=== PATIENT | female | born 1930 | race Caucasian/White ===

== ENCOUNTER 2017-02-19 19:03 | Inpatient (IN) | payer OTHER, BC ==
[2017-02-19] MEDS ORDERED: methylPREDNISolone SOD SUCC 125 MG/2 ML VIAL IVP ONE (19:15)
[2017-02-19] MEDS ORDERED: MAGNESIUM SULF 2 GM/WATER 50 ML IV ONE (19:15)
--- NOTE | 2017-02-19 19:18 | CPEKG ---
Heart Rate: 114 RR Interval: 526 P-R Interval: 121 QRSD Interval: 88 QT Interval: 312 QTC Interval: 430 P Mineral: 0 QRS [place]eral: 31 EKG Severity - ABNORMAL ECG - EKG Impression: SINUS TACHYCARDIA EKG Impression: LVH WITH SECONDARY REPOLARIZATION ABNORMALITY Electronically Signed By: Kelle Bravo 19-Feb-2017 22:07:42
[2017-02-19 19:29] LABS: % IMMATURE GRANULYOCYTES 1.2 % (0.0-1.1); ABSOLUTE IMMATURE GRANULOCYTES 0.15 10^3/uL (0.00-0.10); ADD DIFF? NO; ADD MORPH? NO; ADD SCAN? NO; ATYPICAL LYMPHOCYTE FLAG 10 (0-99); FRAGMENT RBC FLAG 0 (0-99); HEMATOCRIT 43.3 % (38.0-47.0); LEFT SHIFT FLG 0 (0-99); LIPEMIA HEMOLYSIS FLAG 80 (0-99); MEAN CELL HEMOGLOBIN 30.5 pg (27.9-34.1); MEAN CELL HEMOGLOBIN CONCENTR. 32.3 g/dL (32.4-36.7); MEAN CELL VOLUME 94.3 fL (81.5-99.8); MEAN PLATELET VOLUME 11.9 fL (8.7-11.7); PLATELET CLUMPS FLAG 20 (0-99); PLATELET COUNT 195 10^3/uL (150-400); RED BLOOD CELL COUNT 4.59 10^6/uL (4.18-5.33); RED CELL DISTRIBUTION WIDTH 13.5 % (11.5-15.2)
[2017-02-19 19:34] LABS: INR 1.15 (0.83-1.16); PROTIME(PATIENT) 14.6 SEC (12.0-15.0)
[2017-02-19 19:36] LABS: ANION GAP 15 mEq/L (8-16); CALCIUM 9.9 mg/dL (8.5-10.4); CARBON DIOXIDE 22 mEq/l (22-31); CHLORIDE 100 mEq/L (97-110); CREATININE 1.3 mg/dL (0.6-1.0); GLOMERULAR FILTRATION RATE 39; GLUCOSE 219 mg/dL (70-100); POTASSIUM 4.3 mEq/L (3.5-5.2); SODIUM 137 mEq/L (134-144)
[2017-02-19 19:40] LABS: APTT 25.2 SEC (23.0-38.0)
[2017-02-19 19:48] LABS: TROPONIN I 0.025 ng/mL (0.000-0.034)
[2017-02-19] MEDS ORDERED: NS 250 ML IV ONE (20:00)
[2017-02-19] MEDS ORDERED: IOPAMIDOL (ISOVUE 370) 100 ML BTL IV ONE (20:05)
[2017-02-19] MEDS ORDERED: AZITHROMYCIN IV 500 MG in D5W 250 ML IV ONE (20:06)
--- NOTE | 2017-02-19 20:06 | EDPHY ---
H & P Time Seen by Provider: 02/19/17 19:13 HPI/ROS: HPI Shortness of breath, syncope. 86-year-old female by ambulance with her daughter. [facility]. She has a history of pulmonary hypertension, sarcoidosis and pulmonary fibrosis. She is on oxygen at night. Over the last 2 weeks, her daughter reports that she has required more oxygen. She had a syncopal event at her assisted prior to arrival. Her daughter reports that she has become progressively more short of breath as well over the last several days. ROS: Constitutional: No fever, no chills. As above. Eyes: No discharge. No changes in vision. ENT: No sore throat. No nasal congestion or rhinorrhea. Respiratory: No cough. As above. Cardiac: No chest pain, no palpitations. Gastrointestinal: No abdominal pain, no vomiting, no diarrhea. Genitourinary: No hematuria. No dysuria or increased frequency with urination. Musculoskeletal: No back pain. No neck pain. No myalgias or arthralgias. Skin: No rashes. Neurological: No headache. No focal weakness or altered sensation. Past medical history: As above and includes hypothyroidism, dementia. Social history: Nonsmoker. Here with her daughter. No alcohol. Physical Exam: General Appearance: Alert, on facemask oxygen. This patient appears generally well-hydrated and well-nourished. Eyes: Pupils equal and round no pallor or injection. No lid edema, erythema or injection. ENT, Mouth: Mucous membranes are dry. The pharyngeal tissues are unremarkable. No edema or swelling. No asymmetry suggestive of abscess. No erythema or exudates. Respiratory: There are no retractions, decreased lung sounds at the left base. Lung sounds clear to auscultation bilaterally anteriorly. Cardiovascular: Regular rate and rhythm. Mild tachycardia. No murmur. Gastrointestinal: Abdomen is soft and nontender, no masses, bowel sounds normal. No focal tenderness at McBurney's point. No Foster sign. Neurological: Motor sensory function is grossly intact. Cranial nerves are grossly normal. Skin: Warm and dry, no rashes. Musculoskeletal: Neck is supple and nontender. Extremities are symmetrical. All joints range without pain or impingement. Psychiatric: No agitation. No depression. Database: EKG: EKG time is 7:16 p.m.; EKG shows a narrow complex normal sinus tachycardia with a ventricular rate of 114. Left ventricular hypertrophy noted. The WI, QRS, QT intervals are within normal limits. There are no ST-T wave changes indicative of ischemic or injury pattern. No evidence of right heart strain. Interpreted by me. Imaging: Chief chest x-ray AP portable: Probable left basilar infiltrate. Increased interstitial markings, no pneumothorax. Interpreted by me. CT angiogram of the chest: Significant for bilateral pulmonary emboli with right ventricular hypertrophy high volume. Results discussed with staff radiologist Dr. Tobi Walker. Procedures: Emergency department course: IV placed. Patient was placed on non-rebreather face mask oxygen at 15 L. Vital signs were reviewed. EKG and chest x-ray obtained. Patient given 125 mg of IV Solu-Medrol. Blood cultures obtained. 8:00 p.m., discussed case with on-call hospitalist Dr. German Cervantes. We reviewed the patient's chest x-ray together. Patient started on IV azithromycin and IV Rocephin in the emergency department for probable pneumonia. Patient's D-dimer markedly elevated. Will obtain CT angiogram. Dr. Cervantes accepts the patient for admission to telemetry. 8:40 p.m., discussed results of CT angiogram of chest with admitting hospitalist Dr. German Cervnates. Patient started on IV heparin per protocol. Patient admitted to telemetry in stable condition. Differential Diagnosis: The differential diagnosis on this patient includes but is not limited to pneumonia, congestive heart failure, pulmonary embolism, acute coronary syndrome , pulmonary hypertension, pulmonary fibrosis. This represents a partial list of diagnoses considered. These considerations are based on history, physical exam, past history, reassessment and diagnostic testing. Smoking Status: Never smoked Constitutional: Initial Vital Signs Temperature (C) 36 C 02/19/17 19:10 Heart Rate 116 H 02/19/17 19:10 Respiratory Rate 32 H 02/19/17 19:10 Blood Pressure 134/90 H 02/19/17 19:10 O2 Sat (%) 92 02/19/17 19:10 O2 Delivery Mode Non-Rebreather Mask O2 (L/minute) 15 Allergies/Adverse Reactions: Penicillins Allergy (Verified 02/19/17 19:08) Home Medications: Medication Instructions Recorded Calcium Carbonate/Vitamin D2 1 tab PO BID 02/19/17 [Oyster Shell Calcium-Vit D Tab] Cholecalciferol Vit D3 [Vitamin D3 1,000 units PO DAILY 02/19/17 (*)] Folic Acid [Folic Acid 1 MG (*)] 1 mg PO DAILY 02/19/17 Levothyroxine [Synthroid 50 mcg 50 mcg PO DAILY06 02/19/17 (*)] Pyridoxine HCl [Vitamin B-6 25 mg 25 mg PO DAILY 02/19/17 (*)] Travoprost Z 0.004% [Travatan Z 1 drops EACHEYE DAILY 02/19/17 0.004% (*)] Medical Decision Making - Diagnostics Imaging Results: Imaging Impressions Chest/Thorax CTA 02/19/17 19:58 Impression: 1. Severe bilateral pulmonary emboli. 2. Pulmonary hypertension, with enlargement of right ventricle. 3. Bronchiectasis and bilateral pulmonary scarring. 4. Large hiatal hernia. I discussed results with Kelle Bravo M.D., at 2031 hours. - Data Points Laboratory Results: Laboratory Results 02/19/17 19:15 02/19/17 19:15 Microbiology Results: MICROBIOLOGY 02/19/17 19:48 Nasal, Sinus - Swab Respiratory Panel (PCR) - Final No Organism Detected Medications Given: Calcium/Vitamin D (Calcium Carb W/Vit D) 1 mg PO BID [facility] Stop: 08/19/17 08:59 Last Admin: 02/20/17 08:07 Dose: 1 mg Folic Acid (Folic Acid) 1 mg PO DAILY [facility] Stop: 08/19/17 08:59 Last Admin: 02/20/17 08:07 Dose: 1 mg Azithromycin 500 mg/ Dextrose 255 mls @ 255 mls/hr IV DAILY@1000 [facility] PRN Reason: Protocol Stop: 03/22/17 09:59 Last Admin: 02/20/17 10:23 Dose: 255 mls Ceftriaxone Sodium/Dextrose (Rocephin 1 Gm (Premix)) 50 mls @ 100 mls/hr IV DAILY [facility] PRN Reason: Protocol Stop: 03/22/17 08:59 Last Admin: 02/20/17 08:06 Dose: 50 mls Sodium Chloride (Ns) 1,000 mls @ 75 mls/hr IV CONT [facility] Stop: 08/18/17 20:14 Last Admin: 02/19/17 22:49 Dose: 1,000 mls Levothyroxine Sodium (Synthroid) 50 mcg PO DAILY06 [facility] Stop: 08/19/17 05:59 Last Admin: 02/20/17 05:27 Dose: 50 mcg Pyridoxine HCl (Vitamin B-6) 25 mg PO DAILY [facility] Stop: 08/19/17 08:59 Last Admin: 02/20/17 08:07 Dose: 25 mg Discontinued Medications Heparin Sodium (Porcine) (Heparin Injection) 0 unit IVP EDNOW ONE PRN Reason: Protocol Stop: 02/19/17 20:39 Last Admin: 02/19/17 21:01 Dose: 4,600 units Heparin Sodium (Porcine) (Heparin Injection) 0 unit IVP ONCE ONE PRN Reason: Protocol Stop: 02/19/17 20:39 Last Admin: 02/19/17 22:39 Dose: Not Given Magnesium Sulfate (Magnesium Sulf 2 Gm (Premix)) 50 mls @ 50 mls/hr IV EDNOW ONE Stop: 02/19/17 20:14 Last Admin: 02/19/17 19:29 Dose: 50 mls Sodium Chloride (Ns) 250 mls @ 1,000 mls/hr IV EDNOW ONE PRN Reason: Protocol Stop: 02/19/17 20:14 Last Admin: 02/19/17 20:07 Dose: 250 mls Azithromycin 500 mg/ Dextrose 255 mls @ 255 mls/hr IV EDNOW ONE PRN Reason: Protocol Stop: 02/19/17 21:05 Last Admin: 02/19/17 20:33 Dose: 255 mls Ceftriaxone Sodium/Dextrose (Rocephin 1 Gm (Premix)) 50 mls @ 100 mls/hr IV EDNOW ONE PRN Reason: Protocol Stop: 02/19/17 20:35 Last Admin: 02/19/17 23:37 Dose: 50 mls Heparin Sodium (Porcine) (Heparin 50 Units/Ml (Premix)) 500 mls @ 0 mls/hr IV EDNOW ONE; Per Protocol PRN Reason: Protocol Stop: 02/19/17 20:39 Last Admin: 02/19/17 21:02 Dose: 500 mls Methylprednisolone Sodium Succinate (Solu-Medrol) 125 mg IVP EDNOW ONE Stop: 02/19/17 19:16 Last Admin: 02/19/17 19:27 Dose: 125 mg Departure - Departure Disposition: [facility] Acute Clinical Impression: Hypoxia, Syncope, Pneumonia, Pulmonary embolism
[2017-02-19] MEDS ORDERED: oxyCODONE IR 5 MG TAB PO PRN (20:10)
[2017-02-19] MEDS ORDERED: ACETAMINOPHEN 325 MG TAB PO PRN (20:10)
[2017-02-19] MEDS ORDERED: ONDANSETRON DISINTEGRATING 4 MG TAB PO PRN (20:10)
[2017-02-19] MEDS ORDERED: HEPARIN 10,000 UNIT/10 ML MDV IVP ONE ×2 (20:38)
[2017-02-19] MEDS ORDERED: HEPARIN 10,000 UNIT/10 ML MDV IVP PRN (20:38)
[2017-02-19] MEDS ORDERED: HEPARIN/DEXTROSE 500 ML IV ONE (20:38)
--- NOTE | 2017-02-19 20:40 | HOSPPROG ---
Hospitalist Progress Note Assessment/Plan: CT reviewed - bilat PE - discussed with daughter - will start heparin; would not escalate therapies Objective: Vital Signs Temp Pulse Resp BP Pulse Ox 36.4 C 116 H 24 H 124/84 H 97 02/19/17 20:00 02/19/17 20:00 02/19/17 20:00 02/19/17 20:00 02/19/17 20:00 PT 14.6 SEC (12.0-15.0) 02/19/17 19:15 INR 1.15 (0.83-1.16) 02/19/17 19:15 ICD10 Worksheet Patient Problems: Problems Problem Status Onset Hypoxia Acute Syncope Acute Pneumonia Acute
--- NOTE | 2017-02-19 20:44 | GHP ---
[f rep st] HISTORY AND PHYSICAL DATE OF ADMISSION: 02/19/2017 CHIEF COMPLAINT: Collapse. HISTORY OF PRESENT ILLNESS: This is an 86-year-old female, who lives at [facility] , was brought in today after she collapsed. She is accompanied by her daughter who provides most of the history. She apparently has not been feeling well for the last few weeks. She moved here somewh at recently, was initially needing nocturnal oxygen. This progressed to occasionally needing oxygen during the day. For the past few weeks, she has been more fatigued and felt more short of breath. T elizabet, she was seen to collapse in the [place]. They checked her sats at the time and they were in the 7 0s. She was also blue at the time. She does have a significant pulmonary history, which I will deta il below. Otherwise, when I ask her, she is not complaining of any chest pain or shortness of breath . She has no pleuritic pain either. PAST MEDICAL/SURGICAL HISTORY: 1. 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 2. Pulmonary hypertension. She is followed by a spa therapist in [place]. 3. Dementia. MEDICATIONS: Please see medication reconciliation. ALLERGIES: Penicillin. SOCIAL HISTORY: She lives at [place]. FAMILY HISTORY: Parents are . REVIEW OF SYSTEMS: 10-point review of systems is conducted and is negative except per HPI. PHYSICAL EXAMINATION: VITAL SIGNS: Blood pressure 124/84, heart rate 116, respiration rate 24, satt ing at 97% on 15 L nonrebreather. Temperature is 36.4. GENERAL: The patient is a pleasant, older, elderly female, who is wearing a facemask. She looks somewhat uncomfortable. HEENT: Shows her to b e in a simple facemask. CARDIOVASCULAR: Shows her to be tachycardic. There are no murmurs, rubs, o r gallops. PULMONARY: Shows her to have significant crackles on the left side. She is in some resp iratory distress. ABDOMEN: Soft, nontender, nondistended. SKIN: Showed no rash. : Showed no F oley. NEUROLOGIC: Shows her to be alert and oriented x3. She is moving all extremities. PSYCHIATR IC: Shows normal mood and affect. LABORATORY DATA: White count is 12.4. D-dimer is 19.8. INR is 1.1. Creatinine is 1.3. BUN is 35. BNP is 895. Glucose is 219. DATA: 1. Chest x-ray, which I personally viewed and interpreted, shows marked infiltrate in the left base. We have no olds to compare this to. 2. EKG, which I also personally viewed and interpreted, shows her to be tachycardic. She has a Q-wa ve in lead III. She has ST-depressions in leads V4 through V6. IMPRESSION AND PLAN: This is an 86-year-old female, who presents with acute respiratory failure. 1. Acute respiratory failure: There is certainly a chronic component. Differential includes pneumo travis, worsening pulmonary fibrosis, pulmonary embolus. She will be sent for a stat CT scan right now. We will treat her with antibiotics in the meantime covering community-acquired sources. I have sen t a coccidial mycoses antibody, a sputum culture, Legionella urine antigen. 2. Systemic inflammatory response syndrome: May be sepsis. Pneumonia would be the source. This al so could all be due to a pulmonary embolus. CT scan will help to further evaluate this. 3. History of pulmonary fibrosis, history of Valley fever, history of whooping cough: She sees a lmonologist. May be helpful to have a pulmonary consult while she is here. Again, CT scan will be i nformative. 4. Dementia: She will be at high risk for delirium. Her daughter is with her right now. We will t ry nonpharmacologic measures to keep her comfortable. 5. Code status is Do Not Resuscitate. /[id number]/MODL
[2017-02-19] MEDS ORDERED: HEPARIN/DEXTROSE 500 ML IV SCH (20:45)
[2017-02-19] MEDS: NS 1,000 ML IV SCH (22:49)
[2017-02-20 03:49] LABS: TROPONIN I 0.128 ng/mL (0.000-0.034)
[2017-02-20] MEDS: LEVOTHYROXINE 50 MCG TAB PO SCH (05:27)
[2017-02-20] MEDS: PYRIDOXINE HCL 25 MG TAB PO SCH (08:07)
[2017-02-20] MEDS: FOLIC ACID 1 MG TAB PO SCH (08:07)
[2017-02-20] MEDS: CALCIUM CARB W/VIT D 500 MG TAB PO SCH ×3 (08:07→21:40)
[2017-02-20] MEDS ORDERED: ENOXAPARIN 40 MG/0.4 ML SYR SC SCH (09:00)
[2017-02-20] MEDS: AZITHROMYCIN IV 500 MG in D5W 250 ML IV SCH (10:23)
--- NOTE | 2017-02-20 10:41 | HOSPPROG ---
Hospitalist Progress Note Assessment/Plan: 86-year-old admitted with 3 weeks of failure to thrive, increasing weakness and presenting with a syncopal event is found to have large volume bilateral pulmonary emboli. It is unclear the timing of this if they correspond to her decline 3 weeks ago or if this was an acute finding. She does have fairly advanced dementia and he is difficult to get a history from her. # large volume pulmonary emboli with weakness noted in her right leg over the past few weeks. Possibly she had some small emboli starting a few weeks ago with a larger volume load yesterday on admission. * Continue IV heparin * Check lower extremity Dopplers * Maintain bed rest today * Patient high risk, daughter is aware she is a do not resuscitate. # advanced dementia, patient has been declining for quite some time. I suspect she will also decline further after this hospitalization. # pulmonary fibrosis due to Valley fevers child # hypothyroidism, on replacement. Will recheck if not done recently # history of pulmonary hypertension followed by sculpture instructor in [place]. Because of this history will not repeat echo at this time since she is hemodynamically stable Subjective: Patient new to me and chart reviewed. Patient is comfortable sleeping in bed. She denies any chest pain like pain. Objective: Vital Signs Temp Pulse Resp BP Pulse Ox 34.8 C L 86 16 118/87 H 95 02/20/17 07:22 02/20/17 07:22 02/20/17 07:22 02/20/17 07:22 02/20/17 07:22 02/19/17 02/20/17 02/21/17 05:59 05:59 05:59 Intake Total 300 Balance 300 PT 14.6 SEC (12.0-15.0) 02/19/17 19:15 INR 1.15 (0.83-1.16) 02/19/17 19:15 - Physical Exam Constitutional: no apparent distress, chronically ill appearing Eyes: anicteric sclera, EOMI Ears, Nose, Mouth, Throat: moist mucous membranes Cardiovascular: regular rate and rhythym, No edema Respiratory: no respiratory distress, no rales or rhonchi, clear to auscultation Gastrointestinal: normoactive bowel sounds, soft, non-tender abdomen Genitourinary: no bladder fullness Skin: warm, normal color Musculoskeletal: abnormal gait, generalized weakness Neurologic: No AAOx3 Psychiatric: poor judgement, poor memory ICD10 Worksheet Patient Problems: Problems Problem Status Onset Hypoxia Acute Syncope Acute Pneumonia Acute Pulmonary embolism Acute
[2017-02-20 10:52] LABS: % IMMATURE GRANULYOCYTES 0.7 % (0.0-1.1); ABSOLUTE IMMATURE GRANULOCYTES 0.08 10^3/uL (0.00-0.10); ADD DIFF? NO; ADD MORPH? NO; ADD SCAN? NO; ATYPICAL LYMPHOCYTE FLAG 0 (0-99); FRAGMENT RBC FLAG 0 (0-99); HEMATOCRIT 44.8 % (38.0-47.0); HEMOGLOBIN 14.4 g/dL (12.6-16.3); LEFT SHIFT FLG 0 (0-99); LIPEMIA HEMOLYSIS FLAG 80 (0-99); MEAN CELL HEMOGLOBIN 30.5 pg (27.9-34.1); MEAN CELL HEMOGLOBIN CONCENTR. 32.1 g/dL (32.4-36.7); MEAN CELL VOLUME 94.9 fL (81.5-99.8); MEAN PLATELET VOLUME 11.8 fL (8.7-11.7); PLATELET CLUMPS FLAG 0 (0-99); PLATELET COUNT 175 10^3/uL (150-400); RED BLOOD CELL COUNT 4.72 10^6/uL (4.18-5.33); RED CELL DISTRIBUTION WIDTH 13.2 % (11.5-15.2)
[2017-02-20 11:19] LABS: ALANINE AMINOTRANSFERASE 39 IU/L (9-52); ALBUMIN 3.9 g/dL (3.5-5.0); ALKALINE PHOSPHATASE 104 IU/L (38-126); ANION GAP 22 mEq/L (8-16); ASPARTATE AMINOTRANSFERASE 49 IU/L (14-46); BILIRUBIN,TOTAL 0.6 mg/dL (0.1-1.4); CALCIUM 8.6 mg/dL (8.5-10.4); CARBON DIOXIDE 16 mEq/l (22-31); CHLORIDE 105 mEq/L (97-110); GLOMERULAR FILTRATION RATE 52; GLUCOSE 197 mg/dL (70-100); POTASSIUM 4.2 mEq/L (3.5-5.2); SODIUM 143 mEq/L (134-144); TOTAL PROTEIN 7.8 g/dL (6.3-8.2)
[2017-02-20] MEDS: TRAVOPROST Z 0.004% 2.5 ML OPHT.BTL EACHEYE SCH (16:29)
[2017-02-21] MEDS: NS 1,000 ML IV SCH (04:42)
[2017-02-21 04:50] LABS: HEMATOCRIT 35.3 % (38.0-47.0); HEMOGLOBIN 11.6 g/dL (12.6-16.3); MEAN CELL HEMOGLOBIN 30.5 pg (27.9-34.1); MEAN CELL HEMOGLOBIN CONCENTR. 32.9 g/dL (32.4-36.7); MEAN CELL VOLUME 92.9 fL (81.5-99.8); RED BLOOD CELL COUNT 3.8 10^6/uL (4.18-5.33); RED CELL DISTRIBUTION WIDTH 13.3 % (11.5-15.2)
[2017-02-21 05:10] LABS: ANION GAP 9 mEq/L (8-16); CALCIUM 8.4 mg/dL (8.5-10.4); CARBON DIOXIDE 20 mEq/l (22-31); CHLORIDE 107 mEq/L (97-110); CREATININE 0.9 mg/dL (0.6-1.0); GLOMERULAR FILTRATION RATE 59; GLUCOSE 115 mg/dL (70-100); POTASSIUM 4.2 mEq/L (3.5-5.2); SODIUM 136 mEq/L (134-144)
[2017-02-21] MEDS: LEVOTHYROXINE 50 MCG TAB PO SCH (06:27)
[2017-02-21] MEDS: AZITHROMYCIN IV 500 MG in D5W 250 ML IV SCH (10:02)
[2017-02-21] MEDS ORDERED: OLANZapine 2.5 MG TAB PO PRN (10:16)
--- NOTE | 2017-02-21 10:18 | HOSPPROG ---
Hospitalist Progress Note Assessment/Plan: 86-year-old admitted with 3 weeks of failure to thrive, increasing weakness and presenting with a syncopal event is found to have large volume bilateral pulmonary emboli. It is unclear the timing of this if they correspond to her decline 3 weeks ago or if this was an acute finding. She does have fairly advanced dementia and he is difficult to get a history from her. # large volume pulmonary emboli with weakness noted in her right leg over the past few weeks. Possibly she had some small emboli starting a few weeks ago with a larger volume load yesterday on admission. * Changed to Lovenox * add warfarin * activity as tolerated * patient hemodynamically stable currently # advanced dementia, patient has been declining for quite some time. I suspect she will also decline further after this hospitalization. * overnight with poor sleep. We will add Zyprexa as needed for sleep. # pulmonary fibrosis due to Valley fevers child # hypothyroidism, on replacement. Will recheck if not done recently # history of pulmonary hypertension followed by tour agent in [place]. Because of this history will not repeat echo at this time since she is hemodynamically stable Objective: Vital Signs Temp Pulse Resp BP Pulse Ox 36.3 C 83 14 152/88 H 96 02/21/17 08:00 02/21/17 08:00 02/21/17 08:00 02/21/17 08:00 02/21/17 08:00 Laboratory Results 02/21/17 04:42 02/21/17 04:42 02/20/17 02/21/17 02/22/17 05:59 05:59 05:59 Intake Total 300 2566 Balance 300 2566 PT 14.6 SEC (12.0-15.0) 02/19/17 19:15 INR 1.15 (0.83-1.16) 02/19/17 19:15 ICD10 Worksheet Patient Problems: Problems Problem Status Onset Hypoxia Acute Syncope Acute Pneumonia Acute Pulmonary embolism Acute
[2017-02-21] MEDS: ENOXAPARIN 80 MG/0.8 ML SYR SC SCH ×2 (10:50→20:27)
[2017-02-21] MEDS: TRAVOPROST Z 0.004% 2.5 ML OPHT.BTL EACHEYE SCH (11:16)
[2017-02-21] MEDS: FOLIC ACID 1 MG TAB PO SCH (13:54)
[2017-02-21] MEDS: CALCIUM CARB W/VIT D 500 MG TAB PO SCH ×2 (13:55→20:27)
[2017-02-21] MEDS: PYRIDOXINE HCL 25 MG TAB PO SCH (13:55)
[2017-02-21] MEDS ORDERED: WARFARIN SODIUM 5 MG TAB PO ONE (16:00)
--- NOTE | 2017-02-21 17:08 | ASMTCMCOM ---
CM Note CM Note Notes: Spoke w/pt's daughter Karol [phone] re HC. Pt will need an RN for Lovenox injections and PT/OT are recommending skilled therapy. Karol rolando Mena, RN from [facility], will be here tomorrow at 2pm to assess pt for needs and her return to [facility], and whether they will be able to meet her skilled RN/PT needs. Pt has had HC through [facility] in past. Karol will f/u with CM tomorrow after she meets w/Trina to let us know whether pt will have HC through [facility] or [facility]. Date Signed: 02/21/2017 02:36 PM Electronically Signed By:Kelly Lopez
--- NOTE | 2017-02-21 17:08 | ASMTCMCOM ---
CM Note CM Note Notes: Chart reviewed, CM met w/ pt and daughter for dispo planning. PT is recommending home health. Pt resides in [facility] in [place]. Daughter is MDPOA does not think that home health would be beneficial at this time. Daughter reports that pt is too far advanced in her dementia to retain new information. Daughter feels that pt will be more agitated with home health. Director of [place] will be in tomorrow to visit with pt (Trina Rivers RN P#: [phone]). Pt will most likely discharge independent. CM available for changes. Date Signed: 02/20/2017 02:05 PM Electronically Signed By:Gaviota Carballo
[2017-02-22] MEDS: LEVOTHYROXINE 50 MCG TAB PO SCH (05:06)
[2017-02-22 05:20] LABS: HEMATOCRIT 41.1 % (38.0-47.0); MEAN CELL HEMOGLOBIN 29.8 pg (27.9-34.1); MEAN CELL HEMOGLOBIN CONCENTR. 31.6 g/dL (32.4-36.7); MEAN CELL VOLUME 94.3 fL (81.5-99.8); RED BLOOD CELL COUNT 4.36 10^6/uL (4.18-5.33); RED CELL DISTRIBUTION WIDTH 13.4 % (11.5-15.2)
[2017-02-22 05:31] LABS: INR 1.15 (0.83-1.16); PROTIME(PATIENT) 14.6 SEC (12.0-15.0)
[2017-02-22 05:54] LABS: ANION GAP 11 mEq/L (8-16); CALCIUM 9.5 mg/dL (8.5-10.4); CARBON DIOXIDE 23 mEq/l (22-31); CHLORIDE 107 mEq/L (97-110); GLOMERULAR FILTRATION RATE 52; GLUCOSE 82 mg/dL (70-100); POTASSIUM 4.5 mEq/L (3.5-5.2); SODIUM 141 mEq/L (134-144)
[2017-02-22] MEDS: FOLIC ACID 1 MG TAB PO SCH (09:13)
[2017-02-22] MEDS: ENOXAPARIN 80 MG/0.8 ML SYR SC SCH ×2 (09:13→21:23)
[2017-02-22] MEDS: CALCIUM CARB W/VIT D 500 MG TAB PO SCH ×2 (09:13→21:23)
[2017-02-22] MEDS: PYRIDOXINE HCL 25 MG TAB PO SCH (09:13)
--- NOTE | 2017-02-22 10:05 | HOSPPROG ---
Hospitalist Progress Note Assessment/Plan: 86-year-old admitted with 3 weeks of failure to thrive, increasing weakness and presenting with a syncopal event is found to have large volume bilateral pulmonary emboli. It is unclear the timing of this if they correspond to her decline 3 weeks ago or if this was an acute finding. She does have fairly advanced dementia and he is difficult to get a history from her. # large volume pulmonary emboli with weakness noted in her right leg over the past few weeks. Possibly she had some small emboli starting a few weeks ago with a larger volume load yesterday on admission. * Continue Lovenox and warfarin * Go back to assisted living * Stable # advanced dementia, patient has been declining for quite some time. I suspect she will also decline further after this hospitalization. * [place] sedated with low-dose like Zyprexa * Trial melatonin # pulmonary fibrosis due to Valley fevers child # hypothyroidism, on replacement. Will recheck if not done recently # history of pulmonary hypertension followed by setter up in [place]. Because of this history will not repeat echo at this time since she is hemodynamically stable Subjective: Sleepy but arousable. No complaint Objective: Vital Signs Temp Pulse Resp BP Pulse Ox 36.3 C 55 L 16 158/96 H 99 02/22/17 08:00 02/22/17 08:00 02/22/17 08:00 02/22/17 08:00 02/22/17 08:00 Laboratory Results 02/22/17 05:05 02/22/17 05:05 02/21/17 02/22/17 02/23/17 05:59 05:59 05:59 Intake Total 2566 700 Balance 2566 700 PT 14.6 SEC (12.0-15.0) 02/22/17 05:05 INR 1.15 (0.83-1.16) 02/22/17 05:05 - Physical Exam Constitutional: not in pain, chronically ill appearing Eyes: EOMI Ears, Nose, Mouth, Throat: moist mucous membranes Cardiovascular: regular rate and rhythym, No edema Respiratory: no respiratory distress, clear to auscultation Gastrointestinal: normoactive bowel sounds, soft, non-tender abdomen Genitourinary: no bladder fullness Skin: warm Neurologic: No AAOx3 Psychiatric: interacting appropriately ICD10 Worksheet Patient Problems: Problems Problem Status Onset Hypoxia Acute Syncope Acute Pneumonia Acute Pulmonary embolism Acute
--- NOTE | 2017-02-22 11:29 | ASMTCMCOM ---
CM Note CM Note Notes: Met with patient's daughters (Karol [phone] is point of contact) and RN Trina from [facility] ([phone]). They request [facility] (RN/PT) so I sent referral. They also request an order for a hospital bed and a portable O2 concentrator (patient already has concentrator in room, Alcira is provider). I spoke with Dr Santillan and passed on these requests, as well as a request that she call Karol. CM will follow. Discharge plan 02/22: [facility] with [facility] and home O2 Date Signed: 02/22/2017 11:28 AM Electronically Signed By:Denice Garcia
[2017-02-22] MEDS: TRAVOPROST Z 0.004% 2.5 ML OPHT.BTL EACHEYE SCH (12:52)
[2017-02-22] MEDS ORDERED: WARFARIN SODIUM 5 MG TAB PO ONE (14:15)
--- NOTE | 2017-02-22 14:32 | ASMTCMCOM ---
CM Note CM Note Notes: Patient's Daughter, Karol given prescription from Dr. Santillan for patient's hospital bed. D/C plan remains the same. Date Signed: 02/22/2017 02:32 PM Electronically Signed By:Yarelis Camarillo
[2017-02-23] MEDS: LEVOTHYROXINE 50 MCG TAB PO SCH (05:29)
[2017-02-23 06:03] LABS: HEMATOCRIT 38.3 % (38.0-47.0); HEMOGLOBIN 12.5 g/dL (12.6-16.3); MEAN CELL HEMOGLOBIN 30.3 pg (27.9-34.1); MEAN CELL HEMOGLOBIN CONCENTR. 32.6 g/dL (32.4-36.7); MEAN CELL VOLUME 92.7 fL (81.5-99.8); RED BLOOD CELL COUNT 4.13 10^6/uL (4.18-5.33); RED CELL DISTRIBUTION WIDTH 13.4 % (11.5-15.2)
[2017-02-23 06:04] LABS: INR 1.28 (0.83-1.16)
[2017-02-23 08:44] VITALS: BP 140/85; TEMP 98.1
--- NOTE | 2017-02-23 09:17 | PDIAF ---
- Diagnosis Diagnosis: pulmonary emboli Code Status: Do Not Resuscitate - Medication Management Discharge Medications: Medications to Continue on Transfer Calcium Carbonate/Vitamin D2 [Oyster Shell Calcium-Vit D Tab] 1 tab PO BID 02/19 [Last Taken Unknown] Cholecalciferol Vit D3 [Vitamin D3 (*)] 1,000 units PO DAILY 02/19/17 [Last Taken Unknown] Folic Acid [Folic Acid 1 MG (*)] 1 mg PO DAILY 02/19/17 [Last Taken 02/19/17] Levothyroxine [Synthroid 50 mcg (*)] 50 mcg PO DAILY06 02/19/17 [Last Taken 01/28] Pyridoxine HCl [Vitamin B-6 25 mg (*)] 25 mg PO DAILY 02/19/17 [Last Taken Unknown] Travoprost Z 0.004% [Travatan Z 0.004% (*)] 1 drops EACHEYE DAILY 02/19/17 [ Last Taken Unknown] Acetaminophen [Tylenol 325mg (*)] 650 mg PO Q4HRS PRN tab 02/23/17 [Last Taken Unknown] Enoxaparin [Lovenox 80 MG (*)] 80 mg SC BID syr 02/23/17 [Last Taken Unknown] Ondansetron Odt [Zofran Odt 4 mg (*)] 4 mg PO Q4HRS PRN tab 02/23/17 [Last Taken Unknown] Warfarin Sodium 3 mg PO DAILY #30 tablet 02/23/17 [Last Taken Unknown] oxyCODONE IR [Oxycodone Ir (*)] 5 - 10 mg PO Q3HRS PRN tab 02/23/17 [Last Taken Unknown] Discharge Medications: Refer to the Discharge Home Medication list for PRN reason. PICC Care - Routine: N/A - Orders Services needed: Home Care, Registered Nurse, Certified Outside Salesman, Master Instructional Paraprofessional, Physical Therapy Home Care Face to Face: I certify that this patient was under my care and that I had the required [id number] encounter meeting the encounter requirements on the discharge day. My findings support the fact that the patient is homebound as defined in CMS Chapter 7 Medicare Benefits Manual 30.1.1, The condition of the patient is such that there exists a normal inability to leave home and consequently, leaving home would require a considerable and taxing effort. Diet Recommendation: no restrictions on diet Diet Texture: Regular Texture Diet, Thin Liquids, Meds Crushed in Puree Sam: Not applicable Additional: pt on coumadin, new medication. Bridge lovenox until INR 2-3 for 24 hours. Dose of coumadin may need to be adjusted depending on INR. - Labs/Radiology PT/INR Date: 02/24/17 (daily til INR stable, goal 2-3) - Follow Up Care Current Providers and Referrals: Patient,NotPresent [Primary Care Provider] - As per Instructions
[2017-02-23] MEDS: CALCIUM CARB W/VIT D 500 MG TAB PO SCH (09:32)
[2017-02-23] MEDS: PYRIDOXINE HCL 25 MG TAB PO SCH (09:32)
[2017-02-23] MEDS: FOLIC ACID 1 MG TAB PO SCH (09:32)
[2017-02-23] MEDS: ENOXAPARIN 80 MG/0.8 ML SYR SC SCH (09:32)
[2017-02-23] MEDS: TRAVOPROST Z 0.004% 2.5 ML OPHT.BTL EACHEYE SCH (09:38)
--- NOTE | 2017-02-23 09:43 | GDS ---
[f rep st] DISCHARGE SUMMARY DIAGNOSES: 1. Pulmonary embolism. 2. Dementia. 3. Hypertension. PROCEDURES DONE: CT angiogram of the chest: Moderate to large volume PE. Lower extremity Doppler showing DVT left calf and popliteal veins. HOSPITAL COURSE: The patient is an 86-year-old with a decline in function over the 2 weeks prior to admission. On the day of admission, she collapsed and was brought in to the emergency department and found to have large volume PE. She did have some evidence of right heart strain on her CTA, however , was hemodynamically stable. She was placed on IV heparin, transitioned to Lovenox and will be star rajani on Coumadin to bridge. The dose of Coumadin is yet unknown and will need to get daily INRs in e assisted living until her Coumadin dosing is stable with an INR of 2-3. She essentially had no sig nificant symptoms except for some mild shortness of breath through her stay that has improved. The r est of her medical issues have remained stable. Her activity level has also increased with treatment of the pulmonary embolism. CONDITION ON DISCHARGE: Good. PHYSICAL EXAMINATION: VITAL SIGNS: Stable. She has been afebrile, heart rate 69, blood pressure 14 0/85, she is 95% on 2 L. GENERAL: She is alert, not oriented. HEART: Regular. LUNGS: Clear. She has no significant edema. DISCHARGE MEDICATIONS: Please see discharge medication form. NEW MEDICATIONS: Include Lovenox and Coumadin. FOLLOWUP: She will be discharged home with home care and a hospice bed in place due to her history o f chronic pulmonary fibrosis and respiratory failure. She needs ongoing monitoring of her Coumadin, which is a new medicine. PAST MEDICAL HISTORY: Pulmonary fibrosis with chronic respiratory failure, deconditioning and abnorm al gait. Total time spent with patient on day of discharge and coordination of care is 35 minutes. /[id number]/MODL
--- NOTE | 2017-02-23 09:59 | HOSPPROG ---
Hospitalist Progress Note Assessment/Plan: 86-year-old admitted with 3 weeks of failure to thrive, increasing weakness and presenting with a syncopal event is found to have large volume bilateral pulmonary emboli. It is unclear the timing of this if they correspond to her decline 3 weeks ago or if this was an acute finding. She does have fairly advanced dementia and he is difficult to get a history from her. Per her family staying in bed most days. She was no longer able to ambulate and had transition to a wheelchair. She continues to be quite weak here and limited due to her pulmonary embolism on top of her chronic pulmonary fibrosis and respiratory failure. Due to her deconditioning and comorbidity she needs a hospice bed. # large volume pulmonary emboli with weakness noted in her right leg over the past few weeks. Possibly she had some small emboli starting a few weeks ago with a larger volume load yesterday on admission. * Continue Lovenox and warfarin * Go back to assisted living * Stable # advanced dementia, patient has been declining for quite some time. I suspect she will also decline further after this hospitalization. * [place] sedated with low-dose like Zyprexa * Trial melatonin # pulmonary fibrosis due to [place] fevers child . With some chronic pulmonary issues. # hypothyroidism, on replacement. Will recheck if not done recently # history of pulmonary hypertension followed by bill of lading clerk in [place]. Because of this history will not repeat echo at this time since she is hemodynamically stable. She would benefit from a hospice bed. Subjective: No complaints although has advanced dementia Objective: Vital Signs Temp Pulse Resp BP Pulse Ox 36.7 C 69 18 140/85 H 95 02/23/17 08:43 02/23/17 08:43 02/23/17 08:43 02/23/17 08:43 02/23/17 08:43 Laboratory Results 02/23/17 05:33 02/22/17 05:05 02/22/17 02/23/17 02/24/17 05:59 05:59 05:59 Intake Total 700 50 Balance 700 50 PT 16.0 SEC (12.0-15.0) H 02/23/17 05:33 INR 1.28 (0.83-1.16) H 02/23/17 05:33 - Physical Exam Constitutional: no apparent distress, chronically ill appearing, other ( thin) Eyes: PERRL Ears, Nose, Mouth, Throat: moist mucous membranes Cardiovascular: regular rate and rhythym Respiratory: no respiratory distress, reduced air movement Skin: warm Neurologic: No AAOx3 ICD10 Worksheet Patient Problems: Problems Problem Status Onset Hypoxia Acute Syncope Acute Pneumonia Acute Pulmonary embolism Acute
--- NOTE | 2017-02-23 10:02 | PDHOMEO2F ---
Home Oxygen Face to Face Home Orders: I certify that a physician or a nurse practitioner or physician's hospital medical assistant has had a [id number] encounter with this patient on the date of this order due to the diagnosis listed, which relates to the primary reason the patient requires home oxygen. Alternative treatments have been tried, or considered, and deemed ineffective. It is anticipated that supplemental oxygen will result in improvement with treatment. Home oxygen qualifying diagnosis: pulmonary embolis, pulmonary htn, Home oxygen secondary diagnosis: pulmonary fibrosis SpO2 on room air (%): 86 Frequency of home oxygen needed: continuous Home oxygen liters per minute: 2 Home oxygen delivery device: nasal cannula Concentrator: Other (she has concentrator at home.) E-tanks for mobility and back up: Yes If ordering portable O2, is the patient mobile in the home?: Yes I certify that, based on these findings, the home oxygen is medically necessary for this patient for the following length of time. Length of time home oxygen needed: 99 years
--- NOTE | 2017-02-23 10:48 | ASMTCMCOM ---
CM Note CM Note Notes: Chart reviewed, pt is being discharged today. Pt is discharging with OT/PT with [facility]. Karol, daughter will do injection. A prescription will be given by Dr. Santillan to Karol. Nursing will provide demonstration on proving injection. KEYANNA has been coordinating with IRON Solo and Dr. Santillan regarding discharge. RT will be providing O2 concentrator. CM faxed over orders to [facility] and provided RN with phone # to [facility] to provide report. Date Signed: 02/23/2017 10:47 AM Electronically Signed By:FAUSTINO Aburto
[2017-02-23] MEDS ORDERED: ENOXAPARIN 40 MG/0.4 ML SYR SC ONE (11:00)
[2017-02-23 12:47] VITALS: PULSE 74; RESP 18; O2SAT 84
--- NOTE | 2017-02-23 14:58 | PDIAF ---
- Diagnosis Diagnosis: pulmonary emboli Code Status: Do Not Resuscitate - Medication Management Discharge Medications: Medications to Continue on Transfer Calcium Carbonate/Vitamin D2 [Oyster Shell Calcium-Vit D Tab] 1 tab PO BID 02/19 [Last Taken Unknown] Cholecalciferol Vit D3 [Vitamin D3 (*)] 1,000 units PO DAILY 02/19/17 [Last Taken Unknown] Folic Acid [Folic Acid 1 MG (*)] 1 mg PO DAILY 02/19/17 [Last Taken 02/19/17] Levothyroxine [Synthroid 50 mcg (*)] 50 mcg PO DAILY06 02/19/17 [Last Taken 01/28] Pyridoxine HCl [Vitamin B-6 25 mg (*)] 25 mg PO DAILY 02/19/17 [Last Taken Unknown] Travoprost Z 0.004% [Travatan Z 0.004% (*)] 1 drops EACHEYE DAILY 02/19/17 [ Last Taken Unknown] Acetaminophen [Tylenol 325mg (*)] 650 mg PO Q4HRS PRN tab 02/23/17 [Last Taken Unknown] Enoxaparin [Lovenox 120 MG (*)] 120 mg SQ DAILY #5 ml 02/23/17 [Last Taken Unknown] Ondansetron Odt [Zofran Odt 4 mg (*)] 4 mg PO Q4HRS PRN tab 02/23/17 [Last Taken Unknown] Warfarin Sodium 4 mg PO DAILY #30 tablet 02/23/17 [Last Taken Unknown] oxyCODONE IR [Oxycodone Ir (*)] 5 - 10 mg PO Q3HRS PRN tab 02/23/17 [Last Taken Unknown] Discharge Medications: Refer to the Discharge Home Medication list for PRN reason. PICC Care - Routine: N/A - Orders Services needed: Physical Therapy, Occupational Therapy Diet Recommendation: no restrictions on diet Diet Texture: Regular Texture Diet, Thin Liquids, Meds Crushed in Puree Sam: Not applicable Additional: pt on coumadin, new medication. Bridge lovenox until INR 2-3 for 24 hours. Dose of coumadin may need to be adjusted depending on INR. - Labs/Radiology PT/INR Date: 02/24/17 (daily til INR stable, goal 2-3) - Follow Up Care Current Providers and Referrals: Patient,NotPresent [Primary Care Provider] - As per Instructions
--- NOTE | 2017-02-24 14:22 | ASDISCHSUM ---
Discharge Information Plan Status:Home with Home Health Medically Cleared to Leave:02/23/2017 Discharge Date:02/23/2017 03:20 PM CM D/C Disposition:Home Health Service [facility] D/C Disposition:[id number] Projected Discharge Date:02/23/2017 12:00 AM Transportation at D/C:Family Discharge Delay Reason: Follow-Up Date:02/23/2017 12:00 AM Discharge Slot: Final Diagnosis: Placement Information Referral Type:*Home Health Care Services Referral ID:[id number] Provider Name:[facility] Address 1:[address] Address 2: City:[place] Selection Factors: State:[place] Patient Contact Information Contact Name:CINTIA Relationship:Daughter Address: Work Phone: City: [facility] Phone: [facility] Code: Email: Financial Information Financial Class: Primary Plan Desc:MEDICARE INPATIENT Primary Plan Number:[id number] Secondary Plan Desc:[employer] Secondary Plan Number:[id number] Assessment Information [facility] CM Progress Note CM Note CM Note Notes: Chart reviewed, CM met w/ pt and daughter for dispo planning. PT is recommending home health. Pt resides in [facility] in [place]. Daughter is MDPOA does not think that home health would be beneficial at this time. Daughter reports that pt is too far advanced in her dementia to retain new information. Daughter feels that pt will be more agitated with home health. Director of [facility] will be in tomorrow to visit with pt (Trina Rivers RN P#: [phone]). Pt will most likely discharge independent. CM available for changes. Date Signed: 02/20/2017 02:05 PM Electronically Signed By:FAUSTINO Aburto [facility] CM Progress Note CM Note CM Note Notes: Spoke w/pt's daughter Karol [phone] re HC. Pt will need an RN for Lovenox injections and PT/OT are recommending skilled therapy. Karol rolando Mena, RN from [facility], will be here tomorrow at 2pm to assess pt for needs and her return to , and whether they will be able to meet her skilled RN/PT needs. Pt has had HC through [facility] in past. Karol will f/u with CM tomorrow after she meets w/Trina to let us know whether pt will have HC through [facility] or [facility]. Date Signed: 02/21/2017 02:36 PM Electronically Signed By:AMANDA Khan [facility] Progress Note CM Note CM Note Notes: Met with patient's daughters (Karol [phone] is point of contact) and IRON Mena from [facility] ([phone]). They request [facility] (RN/PT) so I sent referral. They also request an order for a hospital bed and a portable O2 concentrator (patient already has concentrator in room, [facility] is provider). I spoke with Dr Santillan and passed on these requests, as well as a request that she call Karol. CM will follow. Discharge plan 02/22: [facility] with [facility] and home O2 Date Signed: 02/22/2017 11:28 AM Electronically Signed By:Denice Garcia RN [facility] Progress Note CM Note CM Note Notes: Patient's Daughter, Karol given prescription from Dr. Santillan for patient's hospital bed. D/C plan remains the same. Date Signed: 02/22/2017 02:32 PM Electronically Signed By:Yarelis Camarillo LCSW [facility] CM Progress Note CM Note CM Note Notes: Chart reviewed, pt is being discharged today. Pt is discharging with OT/PT with [facility]. keya Roberson will do injection. A prescription will be given by Dr. Santillan to Karol. Nursing will provide demonstration on proving injection. has been coordinating with [facility] and Dr. Santillan regarding discharge. RT will be providing O2 concentrator. CM faxed over orders to [facility] and provided RN with phone # to [facility] to provide report. Date Signed: 02/23/2017 10:47 AM Electronically Signed By:FAUSTINO Aburto Intervention Information Intervention Type:*IM-Signed Date of Service:02/23/2017 10:16 AM Patient Type:Inpatient Staff Member:Aleksandra Eason Hours: Discipline: Severity: Comment:
[2017-02-26 13:13] LABS: COCCIDIOIDES ANTIBODY SERUM Negative (Negative); COCCIDIOIDES IGG IMMUNODIF Negative (Negative); COCCIDIOIDES IGM IMMUNODIF Negative (Negative)
== END 2017-02-23 15:20 | disposition home health service (06) | DRG 175 ==
LOC: EDUNIT# → F3E 21:27
PROVIDERS: ADMIT Student in an Organized Health Care Education/Training Program; ATTEND Student in an Organized Health Care Education/Training Program
DX: I26.99 Other pulmonary embolism without acute cor pulmonale (principal); I82.4Z2 Acute embolism and thrombosis of unspecified deep veins of left distal lower extremity; J96.00 Acute respiratory failure, unspecified whether with hypoxia or hypercapnia; R62.7 Adult failure to thrive; E03.9 Hypothyroidism, unspecified; G30.9 Alzheimer's disease, unspecified; F02.80 Dementia in other diseases classified elsewhere, unspecified severity, without behavioral disturbance, psychotic disturbance, mood disturbance, and anxiety; I27.2 Other secondary pulmonary hypertension; D86.9 Sarcoidosis, unspecified; J84.10 Pulmonary fibrosis, unspecified
CPT/HCPCS: 85520-90; 86635-90; 92526-GN; 92610-GN; 96365; 97162-GP; 97165-GO; 97530-GO; 97535-GO; G8978-GP-CJ; G8979-GP-CI; G8987-GO-CJ; G8987-GO-CK; G8988-GO-CJ; G8989-GO-CJ; G8996-GN-CI; G8997-GN-CI; G8998-GN-CI; J0456; J0696; J1644; J1650; Q9967